=== PATIENT | male | born 1970 | race Caucasian/White ===

== ENCOUNTER 2019-09-11 09:46 | Emergency (ER) | payer MEDICAID, SELFPAY ==
[~2019-09-11] VITALS: Ht 172.7 cm; Wt 60.3 kg
--- NOTE | 2019-09-11 09:46 | NUR ---
Patient BIBA BLS, transferred to bed 1. RN evaluating patient at bedside.
[2019-09-11 09:47] VITALS: BP 141/104
--- NOTE | 2019-09-11 09:51 | NUR ---
DR. BECKWITH EVALUATING PT AT BEDSIDE
--- NOTE | 2019-09-11 10:00 | NUR ---
BIBA C/O SUBJECTIVE FEVER AND FATIGUE FOR 2 DAYS, SOB LAST NIGHT. WENT [facility] YESTERDAY BUT LEFT W/O BEING SEEN. DENIES SOB, COUGH, RUNNY NOSE, SORE THROAT, MUSCLE ACHES, CHILLS, NAUSEA, VOMITING, OR DIARRHEA. SKIN IS PINK/WARM/DRY; AAOX4 WITH EVEN AND STEADY GAIT; LUNGS CLEAR BL; HR EVEN BUT TACHYCADIAC; PT DENIES ANY CP, SOB, OR COUGH AT THIS TIME; PATIENT STATES PAIN OF 0/10 AT THIS TIME; VSS; PATIENT POSITIONED FOR COMFORT; HOB ELEVATED; BEDRAILS UP X2; BED DOWN. ER MADE AWARE OF PT STATUS. PT IS PALCED IN AN ISOLATION ROOM AND ON THE MONITOR. Addendum: 09/11/19 at 1024 by [facility] PT ALSO C/O SEVERE THIRSTY. WATER PROVIDED TO PT AT BEDSIDE.
--- NOTE | 2019-09-11 10:05 | NUR ---
COVID-19 SWAB OBTAINED AT BEDSIDE AND SENT TO THE LAB.
[2019-09-11 11:20] VITALS: BP 153/81
--- NOTE | 2019-09-11 11:20 | NUR ---
Patient discharged with v/s stable. Written and verbal after care instructions given and explained. Patient verbalized understanding. Ambulatory with steady gait. All questions addressed prior to discharge. Advised to follow up with PMD. Covid-19 package provided to patient.
== END 2019-09-11 11:20 | disposition home or self-care (01) ==
LOC: MED 09:46 → EEVIPCON 09:46 → MED 11:20
DX: R03.0 Elevated blood-pressure reading, without diagnosis of hypertension (principal); Z20.828 Contact with and (suspected) exposure to other viral communicable diseases; R06.02 Shortness of breath; R50.9 Fever, unspecified; F17.200 Nicotine dependence, unspecified, uncomplicated; Z71.6 Tobacco abuse counseling
CPT/HCPCS: 36415; 71045; 87635; 99284; Q0092